=== PATIENT | male | born 1980 | race Caucasian/White ===

== ENCOUNTER 2017-08-27 09:18 | Outpatient (CLI) | payer BC | END 2017-08-27 23:59 | disposition home or self-care (01) | LOC: RAD 09:18 | PROVIDERS: ATTEND Family Medicine Sports Medicine | DX: M25.552 Pain in left hip (principal); M25.572 Pain in left ankle and joints of left foot; M86.272 Subacute osteomyelitis, left ankle and foot; T84.038A Mechanical loosening of other internal prosthetic joint, initial encounter; Z98.1 Arthrodesis status | CPT/HCPCS: 78805; A9570 ==

== ENCOUNTER → 2017-09-11 | Emergency (ER) | payer BC ==
[~2017-09-11] VITALS: Ht 182.9 cm; Wt 78.0 kg
[2017-09-11 08:23] VITALS: BP 148/86
== END | disposition left against medical advice (07) ==
LOC: ER 08:19
DX: M25.572 Pain in left ankle and joints of left foot (principal); Z76.0 Encounter for issue of repeat prescription
CPT/HCPCS: 99281